=== PATIENT | male | born 1955 | race Caucasian/White ===

== ENCOUNTER → 2021-09-05 | Outpatient (CLI) | payer MEDICARE | LOC: HEART 5 09-04 08:00 | DX: R06.02 Shortness of breath (principal); I20.8 Other forms of angina pectoris; I48.91 Unspecified atrial fibrillation; I10 Essential (primary) hypertension; I07.1 Rheumatic tricuspid insufficiency; I27.20 Pulmonary hypertension, unspecified | CPT/HCPCS: 78452; 93306; A9502; J2785 ==

== ENCOUNTER → 2021-09-19 | Outpatient (CLI) | payer MEDICARE | LOC: KOH-I 09-18 13:00 | DX: Z01.818 Encounter for other preprocedural examination (principal); I73.9 Peripheral vascular disease, unspecified; M21.961 Unspecified acquired deformity of right lower leg | CPT/HCPCS: 93926 ==

== ENCOUNTER → 2021-10-02 | Outpatient (CLI) | payer MEDICARE ==
[~2021-10-02] MED LIST: ATORVASTATIN CA10 MG PO; ELIQUIS5 MG PO; GLIPIZIDE5 MG PO; LISINOPRIL20 MG PO; METFORMIN ER G500 MG PO; METOPROLOL TART25 MG PO; MULTI-VITAMIN1 EACH PO; PROTONIX 40 MG40 M1 PO
[2021-10-02 10:55] LABS: HEMOGLOBIN 13.9 gm/dl (14.0-17.5); RED BLOOD COUNT 4.63 M/UL (4.20-5.50); WHITE BLOOD COUNT 8.4 K/UL (4.5-11.0)
[2021-10-02 11:34] LABS: BUN/CREATININE RATIO 25 (0-10)
== END ==
LOC: OPSV2 09:30
PROVIDERS: Podiatrist Foot & Ankle Surgery
DX: Z01.818 Encounter for other preprocedural examination (principal); R94.39 Abnormal result of other cardiovascular function study
CPT/HCPCS: 36415; 80048; 83036; 85027; 93005

== ENCOUNTER → 2022-01-21 | Outpatient (CLI) | payer MEDICARE ==
[~2022-01-21] MED LIST changes: +TRULICITY0.75 MG/0. SQ
== END ==
LOC: KOH-I 14:26
DX: M25.571 Pain in right ankle and joints of right foot (principal)
CPT/HCPCS: 73610; 73630

== ENCOUNTER → 2022-02-04 | Outpatient (CLI) | payer MEDICARE | LOC: KOH-I 15:33 | DX: M25.571 Pain in right ankle and joints of right foot (principal) | CPT/HCPCS: 73610; 73630; 73650 ==

== ENCOUNTER → 2022-03-04 | Outpatient (CLI) | payer MEDICARE | LOC: KOH-I 15:12 | DX: M79.671 Pain in right foot (principal); M25.571 Pain in right ankle and joints of right foot | CPT/HCPCS: 73610; 73630; 73650 ==

== ENCOUNTER → 2022-03-18 | Outpatient (CLI) | payer MEDICARE | LOC: KOH-I 15:21 | DX: M25.571 Pain in right ankle and joints of right foot (principal); M79.671 Pain in right foot | CPT/HCPCS: 73610; 73630; 73650 ==

== ENCOUNTER → 2022-04-03 | Outpatient (CLI) | payer MEDICARE | LOC: KOH-I 15:12 | DX: M25.571 Pain in right ankle and joints of right foot (principal); M79.89 Other specified soft tissue disorders | CPT/HCPCS: 73610; 73630; 73650 ==

== ENCOUNTER → 2022-05-13 | Outpatient (CLI) | payer MEDICARE | LOC: KOH-I 16:07 | DX: M25.571 Pain in right ankle and joints of right foot (principal); M79.671 Pain in right foot | CPT/HCPCS: 73610; 73630; 73650 ==

== ENCOUNTER → 2022-06-03 | Outpatient (CLI) | payer MEDICARE | LOC: KOH-I 13:38 | DX: M25.571 Pain in right ankle and joints of right foot (principal) | CPT/HCPCS: 73610; 73630; 73650 ==

== ENCOUNTER → 2022-08-18 | Outpatient (CLI) | payer MEDICARE | LOC: KOH-I 14:06 | DX: M79.671 Pain in right foot (principal); M25.571 Pain in right ankle and joints of right foot; Z98.1 Arthrodesis status | CPT/HCPCS: 73610; 73630; 73650 ==